=== PATIENT | female | born 1965 | race Caucasian/White ===

== ENCOUNTER 2016-09-10 07:37 | Day surgery (SDC) | payer BC ==
[2016-09-10] MEDS ORDERED: LACTATED RINGERS 1,000 ML IV ONE (08:54)
[2016-09-10] MEDS ORDERED: MIDAZOLAM 2 MG/2 ML VIAL IVP ONE (09:53)
[2016-09-10] MEDS ORDERED: fentaNYL 250 MCG/5 ML VIAL IVP ONE (09:53)
== END 2016-09-10 07:38 | disposition home or self-care (01) ==
PROC: 0DBK8ZX Excision of Ascending Colon, Via Natural or Artificial Opening Endoscopic, Diagnostic (ICD-10-PCS; principal; 2016-09-10 09:15)
DX: Z12.11 Encounter for screening for malignant neoplasm of colon (principal); D12.2 Benign neoplasm of ascending colon; Z80.0 Family history of malignant neoplasm of digestive organs; K57.30 Diverticulosis of large intestine without perforation or abscess without bleeding; K64.8 Other hemorrhoids
CPT/HCPCS: 45380; J3010; J7120

== ENCOUNTER 2017-04-06 08:00 | Outpatient (CLI) | payer BC | END 2017-04-06 08:01 | disposition home or self-care (01) | LOC: LAB.WCP 08:00 | PROVIDERS: ATTEND Family Medicine | DX: N39.0 Urinary tract infection, site not specified (principal) | CPT/HCPCS: 87086 ==

== ENCOUNTER 2017-08-18 08:00 | Outpatient (CLI) | payer BC ==
[2017-08-18 13:40] LABS: BASOPHILS % (AUTO) 1.1 %; EOSINOPHILS # (AUTO) 0.1 10^3/uL (0.0-0.7); EOSINOPHILS % (AUTO) 1.7 %; HCT - HEMATOCRIT 41.1 % (37.0-47.0); HGB - HEMOGLOBIN 14.2 g/dL (12.0-16.0); LYMPHOCYTES # (AUTO) 1.8 10^3/uL (1.5-3.5); LYMPHOCYTES % (AUTO) 43.3 %; MEAN CORPUSCULAR HEMOGLOBIN 30.7 pg (27.0-31.0); MEAN CORPUSCULAR HGB CONC 34.7 g/dL (32.0-36.0); MEAN CORPUSCULAR VOLUME 88.5 fL (81.0-99.0); MEAN PLATELET VOLUME 9.3 fL (7.9-10.8); MONOCYTES # (AUTO) 0.3 10^3/uL (0.0-1.0); MONOCYTES % (AUTO) 8.1 %; NEUTROPHILS # (AUTO) 1.9 10^3/uL (1.5-6.6); NEUTROPHILS % (AUTO) 45.8 %; RED BLOOD COUNT 4.64 10^6/uL (4.20-5.40); RED CELL DISTRIBUTION WIDTH 12.8 % (12.0-15.0); UNCORRECTED WHITE BLOOD COUNT 4.2 x10^3/uL; WHITE BLOOD COUNT 4.2 x10^3/uL (4.8-10.8)
[2017-08-18 13:55] LABS: ALBUMIN/GLOBULIN RATIO 1.4 (1.0-2.2); BILIRUBIN,TOTAL 0.8 mg/dL (0.2-1.0); BUN - BLOOD UREA NITROGEN 13 mg/dL (6-20); CALCIUM 9.2 mg/dL (8.5-10.3); CARBON DIOXIDE - CO2 27 mmol/L (21-32); CHLORIDE 100 mmol/L (101-111); CHOL/HDL RATIO 2.3 (<4.4); CHOLESTEROL 206 mg/dL; CREATININE 0.6 mg/dL (0.4-1.0); GFR - MDRD 106 (>89); GLUCOSE 87 mg/dL (70-100); HDL CHOLESTEROL 91 mg/dL; LDL/HDL RATIO 1.1 (<4.4); POTASSIUM 4.3 mmol/L (3.5-5.0); SODIUM 136 mmol/L (135-145); TRIGLYCERIDES 89 mg/dL; VLDL CHOLESTEROL 18 mg/dL
[2017-08-18 13:56] LABS: HEMOGLOBIN A1C 0.45 g/dL
== END 2017-08-18 08:01 ==
LOC: LAB.WCP 08:00
PROVIDERS: ATTEND Family Medicine
DX: Z00.00 Encounter for general adult medical examination without abnormal findings (principal)
CPT/HCPCS: 36415; 80053; 80061; 83036; 84443; 85025

== ENCOUNTER 2017-08-31 13:11 | Outpatient (CLI) | payer BC ==
--- NOTE | 2017-09-01 15:28 | Mammography Report ---
DATE OF SERVICE: 08/31/2017 DIGITAL SCREENING MAMMOGRAM: 08/31/2017 CLINICAL INDICATION: A 51-year-old nulliparous patient, for screening. COMPARISON: 06/2016, 10/2014. TECHNIQUE: Routine CC and MLO projections were obtained of the breasts. FINDINGS: Parenchymal tissue within both breasts is heterogeneously dense, which may lower the sensitivity of mammography; however, there are no dominant masses, suspicious microcalcifications, or secondary signs of malignancy. In comparison to the previous studies, there are no significant changes. ASSESSMENT: NO MAMMOGRAPHIC EVIDENCE OF MALIGNANCY. NO SIGNIFICANT INTERVAL CHANGES. RECOMMENDATION: Screening mammography is recommended annually. BIRADS category 1 - negative. STANDARD QUALIFYING STATEMENTS: 1. This examination was reviewed with the aid of Computed-Aided Detection (CAD). 2. A negative or benign imaging report should not delay biopsy if clinically suspicious findings are present. Consider surgical consultation if warranted. More than 5% of cancers are not identified by imaging. 3. Dense breasts may obscure an underlying neoplasm. TD: 09/01/2017 16:26
== END 2017-08-31 13:12 | disposition home or self-care (01) ==
LOC: DI.N 13:11
PROVIDERS: ATTEND Family Medicine
DX: Z12.31 Encounter for screening mammogram for malignant neoplasm of breast (principal)
CPT/HCPCS: 77067

== ENCOUNTER 2017-08-31 15:00 | Outpatient (CLI) | payer BC ==
[2017-08-31 19:10] LABS: ALBUMIN 4.2 g/dL (3.2-5.5); ALBUMIN/GLOBULIN RATIO 1.3 (1.0-2.2); BILIRUBIN,TOTAL 0.6 mg/dL (0.2-1.0); CALCIUM 9.2 mg/dL (8.5-10.3); CREATININE 0.7 mg/dL (0.4-1.0); TOTAL PROTEIN 7.4 g/dL (6.7-8.2)
== END 2017-08-31 15:01 | disposition home or self-care (01) ==
LOC: LAB.WCP 15:00
PROVIDERS: ATTEND Family Medicine
DX: B35.1 Tinea unguium (principal); Z79.899 Other long term (current) drug therapy
CPT/HCPCS: 36415; 80053

== ENCOUNTER 2017-10-04 08:03 | Outpatient (CLI) | payer BC ==
[2017-10-04 13:28] LABS: ALBUMIN 4.2 g/dL (3.2-5.5); ALBUMIN/GLOBULIN RATIO 1.5 (1.0-2.2); BILIRUBIN,TOTAL 0.8 mg/dL (0.2-1.0); CALCIUM 8.8 mg/dL (8.5-10.3); CREATININE 0.7 mg/dL (0.4-1.0)
== END 2017-10-04 08:04 | disposition home or self-care (01) ==
LOC: LAB.WCP 08:03
PROVIDERS: ATTEND Family Medicine
DX: B35.1 Tinea unguium (principal); Z79.899 Other long term (current) drug therapy
CPT/HCPCS: 36415; 80053

== ENCOUNTER 2017-10-15 16:32 | Outpatient (CLI) | payer BC | END 2017-10-15 16:33 | disposition home or self-care (01) | LOC: LAB.R 16:32 | PROVIDERS: ATTEND Family Medicine | DX: J34.89 Other specified disorders of nose and nasal sinuses (principal) | CPT/HCPCS: 87070; 87205 ==

== ENCOUNTER 2017-11-08 07:47 | Outpatient (CLI) | payer BC ==
[2017-11-08 13:45] LABS: ALBUMIN 4.2 g/dL (3.2-5.5); ALBUMIN/GLOBULIN RATIO 1.5 (1.0-2.2); BILIRUBIN,TOTAL 0.5 mg/dL (0.2-1.0); CALCIUM 8.9 mg/dL (8.5-10.3); CREATININE 0.8 mg/dL (0.4-1.0)
== END 2017-11-08 07:48 | disposition home or self-care (01) ==
LOC: LAB.WCP 07:47
PROVIDERS: ATTEND Family Medicine
DX: B35.1 Tinea unguium (principal); Z79.899 Other long term (current) drug therapy
CPT/HCPCS: 36415; 80053

== ENCOUNTER 2018-08-30 07:23 | Outpatient (CLI) | payer BC ==
[2018-08-30 12:33] LABS: ALBUMIN/GLOBULIN RATIO 1.6 (1.0-2.2); ALKALINE PHOSPHATASE 40 IU/L (42-121); ALT ALANINE AMINOTRANSFERASE 10 IU/L (10-60); AST ASPARTATE AMINOTRANSFERASE 20 IU/L (10-42); BILIRUBIN,TOTAL 0.8 mg/dL (0.2-1.0); BUN - BLOOD UREA NITROGEN 12 mg/dL (6-20); CALCIUM 8.7 mg/dL (8.5-10.3); CARBON DIOXIDE - CO2 27 mmol/L (21-32); CHLORIDE 102 mmol/L (101-111); CHOL/HDL RATIO 2.4 (<4.4); CHOLESTEROL 192 mg/dL; CREATININE 0.6 mg/dL (0.4-1.0); GFR - MDRD 105 (>89); GLUCOSE 96 mg/dL (70-100); HDL CHOLESTEROL 81 mg/dL; LDL CHOLESTEROL,CALCULATED 96 mg/dL; LDL/HDL RATIO 1.2 (<4.4); SODIUM 135 mmol/L (135-145); TOTAL PROTEIN 6.5 g/dL (6.7-8.2); VLDL CHOLESTEROL 15 mg/dL
[2018-08-30 12:42] LABS: BASOPHILS % (AUTO) 0.8 %; EOSINOPHILS # (AUTO) 0.1 10^3/uL (0.0-0.7); EOSINOPHILS % (AUTO) 1.6 %; HGB - HEMOGLOBIN 13.3 g/dL (12.0-16.0); LYMPHOCYTES # (AUTO) 1.1 10^3/uL (1.5-3.5); LYMPHOCYTES % (AUTO) 27.1 %; MEAN CORPUSCULAR HEMOGLOBIN 31.3 pg (27.0-31.0); MEAN CORPUSCULAR HGB CONC 34.2 g/dL (32.0-36.0); MEAN CORPUSCULAR VOLUME 91.5 fL (81.0-99.0); MEAN PLATELET VOLUME 9.8 fL (7.9-10.8); MONOCYTES # (AUTO) 0.4 10^3/uL (0.0-1.0); MONOCYTES % (AUTO) 9.8 %; NEUTROPHILS # (AUTO) 2.5 10^3/uL (1.5-6.6); NEUTROPHILS % (AUTO) 60.7 %; PLT - PLATELET COUNT 197 10^3/uL (130-450); RED BLOOD COUNT 4.23 10^6/uL (4.20-5.40); RED CELL DISTRIBUTION WIDTH 12.8 % (12.0-15.0); WHITE BLOOD COUNT 4.1 x10^3/uL (4.8-10.8)
[2018-08-30 12:44] LABS: HB2 TOTAL 13.8 g/dL; HEMOGLOBIN A1C 0.41 g/dL; HEMOGLOBIN A1C % 4.9 % (4.6-6.2)
== END 2018-08-30 23:59 | disposition home or self-care (01) ==
LOC: LAB.WCP 07:23
PROVIDERS: ATTEND Family Medicine
DX: Z00.00 Encounter for general adult medical examination without abnormal findings (principal)
CPT/HCPCS: 36415; 80053; 80061; 83036; 83721; 84443; 85025

== ENCOUNTER 2018-09-14 08:22 | Outpatient (CLI) | payer BC ==
--- NOTE | 2018-09-15 08:46 | Mammography Report ---
Reason: SCREENING MAMMO Procedure Date: 09/14/2018 Accession Number: [id number] / [id number] Procedure: MGN - Screening Mammo Dig Bilat CPT Code: FULL RESULT: EXAM: Screening Mammo Dig Bilat DATE: 09/14/2018 8:38 AM CLINICAL HISTORY: Screening encounter. History of early menses and nulliparity. TECHNIQUE: Bilateral CC and MLO views were obtained. COMPARISON: 08/31/2017 through 11/20/2014 FINDINGS: The breasts demonstrate scattered fibroglandular densities bilaterally. No suspicious masses, clustered microcalcifications, or regions of architectural distortion are identified. IMPRESSION: Negative examination RECOMMENDATION: Routine annual screening unless otherwise clinically indicated. BIRADS CATEGORY 1: Negative STANDARD QUALIFYING STATEMENTS: 1. This examination was reviewed with the aid of Computer-Aided Detection (CAD). 2. A negative or benign imaging report should not preclude biopsy if clinically suspicious findings are present. 3. Dense breasts may obscure an underlying neoplasm. 4. This examination was reviewed without the aid of 3D breast imaging (tomosynthesis).
== END 2018-09-14 08:23 | disposition home or self-care (01) ==
LOC: DI.N 08:22
DX: Z12.31 Encounter for screening mammogram for malignant neoplasm of breast (principal)
CPT/HCPCS: 77067

== ENCOUNTER 2022-07-06 06:28 | Day surgery (SDC) | payer BC ==
[2022-07-06] MEDS ORDERED: CEFAZOLIN 2G/50ML 0.9% NS 2 GM/50 ML BAG IV ONE (06:34)
[2022-07-06] MEDS ORDERED: LACTATED RINGERS 1,000 ML IV ONE ×3 (06:36→15:30)
[2022-07-06] MEDS ORDERED: EPINEPHrine 1 MG/ML AMP ONE (06:50)
[2022-07-06] MEDS ORDERED: MINERAL OIL/PETROLAT OPHTH OINT ONE (06:50)
[2022-07-06] MEDS ORDERED: CHLORHEXIDINE GLUCONATE 15 ML UDC PO ONE (06:51)
[2022-07-06] MEDS ORDERED: BACITRACIN ZINC OINT 1 PACKET TOP ONE (06:51)
[2022-07-06] MEDS ORDERED: OXYMETAZOLINE HCL 100 SPRAYS BOTTLE ONE ×2 (06:51→07:58)
[2022-07-06] MEDS ORDERED: LIDOCAINE MPF 2%-EPI 1:200000 20 ML VIAL ONE (06:59)
[2022-07-06] MEDS ORDERED: MIDAZOLAM 2 MG/2 ML VIAL ONE (07:25)
[2022-07-06] MEDS ORDERED: fentaNYL 100 MCG/2 ML VIAL ONE (07:26)
--- NOTE | 2022-07-06 07:43 | ANESTHESIA ---
Pre-Anesthesia VS, & Labs - Diagnosis arthritis, R TMJ - Procedure R TMJ arthroplasty Vital Signs: Temp Pulse Resp BP Pulse Ox O2 Flow Rate 36.4 C L 72 9 L 112/76 99 07/06/22 06:50 07/06/22 06:50 07/06/22 06:50 07/06/22 06:50 07/06/22 06:50 Height: 5 ft 4 in Weight (kg): 73.7 kg Body Mass Index: 27.8 BMI Classification: Overweight - NPO >8 hours - Is Patient ?: No Home Medications and Allergies Home Medications: Ambulatory Orders Ibuprofen [Motrin] 600 mg PO Q6H PRN 06/26/22 Multivitamin [Multiple Vitamins] 1 each PO DAILY 06/17/17 Ibuprofen [Motrin] 600 mg PO Q6H PRN 06/26/22 Allergies/Adverse Reactions: Allergies Allergy/AdvReac Type Severity Reaction Status Date / Time amoxicillin Allergy Hives Verified 06/26/22 10:31 Penicillins Allergy Hives Verified 06/26/22 10:31 Anes History & Medical History - Anesthetic History Anesthesia Complications: reports: No previous complications Family history of Anesthesia Complications: Denies Family history of Malignant Hyperthermia: Denies (hx of PFO repair as a child) - Medical History Cardiovascular: reports: Other Pulmonary: reports: None Gastrointestinal: reports: None Urinary: reports: None Musculoskeletal: reports: None Endocrine/Autoimmune: reports: None Skin: reports: None Smoking Status: Never smoker - Surgical History General: reports: Colonoscopy Cardiothoracic: reports: Other Exam General: Alert, Oriented x3, Cooperative Dental: WNL Mouth Openin Fingerbreadth Neck Mobility: Normal Mallampati classification: II Thyromental Distance: 4-6 cm Respiratory: Lungs clear Cardiovascular: Regular rate Plan Anesthesia Type: General Consent for Procedure(s) Verified and Reviewed: Yes Code Status: Attempt Resuscitation ASA classification: 2-Mild systemic disease Is this case an emergency?: No
[2022-07-06] MEDS ORDERED: ePHEDrine 50 MG/ML VIAL IVP PRN (07:47)
[2022-07-06] MEDS ORDERED: METOCLOPRAMIDE 10 MG/2 ML VIAL IVP PRN (07:47)
[2022-07-06] MEDS ORDERED: NALOXONE 0.4 MG/ML VIAL IVP PRN (07:47)
[2022-07-06] MEDS ORDERED: MORPHINE 2 MG/ML CARPUJECT IVP PRN (07:47)
[2022-07-06] MEDS ORDERED: ONDANSETRON 4 MG/2 ML VIAL IVP PRN ×2 (07:47→15:36)
[2022-07-06] MEDS ORDERED: HYDROmorphone 0.5 MG/0.5 ML SYRINGE IVP PRN (07:47)
[2022-07-06] MEDS ORDERED: ATROPINE ABBOJECT 1 MG/10 ML SYRINGE IVP PRN (07:47)
[2022-07-06] MEDS ORDERED: fentaNYL 100 MCG/2 ML VIAL IVP PRN (07:47)
[2022-07-06] MEDS ORDERED: LACTATED RINGERS 1,000 ML IV SCH (08:00)
[2022-07-06] MEDS ORDERED: SCOPOLAMINE PATCH TOP ONE (08:05)
[2022-07-06] MEDS ORDERED: ACETAMINOPHEN 1,000 MG/100 ML 1,000 MG/100 ML BAG IV ONE (08:54)
[2022-07-06] MEDS ORDERED: HYDROmorphone 1 MG/ML CARPUJECT ONE (08:54)
[2022-07-06] MEDS ORDERED: OXYMETAZOLINE HCL 100 SPRAYS BOTTLE NAS ONE (09:57)
[2022-07-06] MEDS ORDERED: BACITRACIN ZINC OINT 14 GM TOP ONE (09:59)
[2022-07-06] MEDS ORDERED: EPINEPHrine 1 MG/ML AMP IJ ONE (10:00)
[2022-07-06] MEDS ORDERED: SODIUM CHLORIDE 0.9% 100 ML BAG IV ONE (10:01)
[2022-07-06] MEDS ORDERED: LIDOCAINE 2%-EPI 1:100000 20 ML MDV SUBQ ONE ×2 (10:07)
[2022-07-06] MEDS ORDERED: CHLORHEXIDINE GLUCONATE 15 ML UDC PO STA (10:16)
[2022-07-06] MEDS ORDERED: MINERAL OIL/PETROLAT OPHTH OINT EACHEYE STA (10:16)
[2022-07-06] MEDS ORDERED: SUCCINYLCHOLINE 200 MG/10 ML VIAL ONE (11:35)
[2022-07-06] MEDS ORDERED: ceFAZolin 1 GM VIAL ONE (12:07)
[2022-07-06] MEDS ORDERED: VANCOMYCIN 1 GM VIAL ONE (13:20)
[2022-07-06] MEDS ORDERED: VANCOMYCIN 1 GM VIAL MC ONE (13:23)
[2022-07-06] MEDS ORDERED: DEXAMETHASONE 4 MG/ML VIAL ONE (14:45)
[2022-07-06] MEDS ORDERED: ONDANSETRON 4 MG/2 ML VIAL ONE (14:45)
[2022-07-06] MEDS ORDERED: PROPOFOL 200 MG/20 ML VIAL IVP ONE (14:55)
[2022-07-06] MEDS ORDERED: ROCURONIUM 50 MG/5 ML VIAL ONE (14:55)
[2022-07-06] MEDS ORDERED: diphenhydrAMINE INJ 50 MG/ML VIAL ONE (14:56)
--- NOTE | 2022-07-06 14:57 | OPERATIVE REPORT ---
Operative Report - General Procedure Date: 07/06/22 Planned Procedure: 1. R temporomandibular joint total joint arthroplasty 2. Intraoperative IMF 3. 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 TJA of the R TMJ w/ prosthetic joint replacement 2. Intraoperative IMF 3. Placement of surgical stent Post Op Diagnosis: Osteoarthritis of the right TMJ - Procedure Note Primary Surgeon: Jairo Miguel DDS Anesthesia Provider: Maya Spencer CRNA Anesthesia Technique: General ET tube (Via the R naris) IV Fluids (mL): 1,800 Estimated Blood Loss (mL): 150 Urine Output (mL): 250 Indications: 56 yo F w/ a group home history of pain of the right TMJ. Worsening over the last year has caused decreased ability to chew food and weight loss. Clinical and radiographic exam was consistent with R TMJ osteoarthritis. It was decided that R TMJ TJA with prosthetic replacement was indicated. The RBAs of this procedure were discussed with this patient including pain, swelling, bleeding, scarring, poor cosmesis, nerve damage with paralysis and/or numbness of the mouth and face, hardware failure, malocclusion, continued TMJ pain, trismus, and need for further surgery. Adequate time was given to answer all questions and informed consent was obtained. Findings: The patient was brought to the main operating room and placed in a supine position on the operating table. General anesthesia was induced by the anesthesia team and the airway was secured with a nasal endotracheal tube. The tube was secured to the septum with 2-0 silk suture. All pressure points were padded and checked. The eyes were protected with Lacri-Lube and Tegaderms. The hair in front of and over the right ear was shaved Attention was directed intraorally. A throat pack was placed. 4 IMF screws were placed on the maxilla and 4 IMF screws were placed on the mandible. The surgical stent was tried between the teeth and found to effectively put the position the patient in a good condylar relationship. A Cruz catheter was placed. The patient was prepped and draped in the standard sterile fashion for placement of a temporomandibular joint total joint arthroplasty with prosthetic replacement. No local anesthesia was given because instead of this it was necessary to give 1-50,000 epinephrine because of the need to perform nerve stimulation. Attention was directed to the right retromandibular region. An incision starting 1 cm inferior to the lobule of the ear and extending for 2 to 2.5 cm inferiorly was performed through the skin with a 15 blade. Blunt dissection through the subcutaneous layers was performed using nerve stimulation to identify the marginal mandibular branch and the buccal branch of the facial nerve. The marginal mandibular branch was reflected inferiorly and the buccal branch was an flap reflected superiorly. Throughout the entirety of the case the nerves were protected carefully with retractors and gentle retraction. A nerve stimulator was used for their identification. After finishing blunt dissection through the parotid the pterygomasseteric sling was encountered. The sling was incised at the inferior and posterior border of the mandible with electrocautery. A #9 periosteal elevator was used to dissect in the subperiosteal layer until the lateral aspect of the mandible had been exposed to the throughout the angle and up to the condylar neck. Attention was directed then to the right preauricular area an incision was made with a #15 blade through the skin. Blunt dissection was then performed through the subcutaneous tissues using nerve stimulation to check for the temporal branch of the facial nerve. The temporal branch was never identified throughout the surgery. The temporalis muscle and its fascia were identified. The fascia was incised. In a subtemporalis fascia plane dissection was performed inferiorly to the zygomatic arch. At this point the investing fascia and the periosteum over the zygomatic arch were incised vertically. This fascia was retracted anteriorly. Dissection at the inferior aspect of the wound was performed by staying close to the external auditory canal and avoiding the is superficial temporal artery. The temporomandibular joint capsule was encountered. A vertical incision and an anterior incision were made through the capsule. The anterior incision was a an incision that coursed from the original vertical incision anteriorly in order to allow greater access to the condyle and the fossa. The condyle was easily identified. Condylar neck retractors were placed around the condyle and a handpiece was used to remove the top centimeter of condylar head. The last little bit of the osteotomy was left incomplete after the portion with a handpiece was completed and this portion was completed with the T-bar osteotome. Once the osteotomy was completed then the lateral pterygoid muscle was dissected off of the condylar head carefully with a combination of a #1 periosteal elevator and a electrocautery. Using a bone clamp on the angle of the mandible the mandible was pushed superiorly. Because of the lack of clearance that was anticipated between the mandibular notch and the eminence of the prostatic fossa, it was decided to reduce the condylar notch with a football bur. This was performed with copious irrigation and with retractors to protect the soft tissues. After this was completed the condylar neck retractors were positioned so that the condylar neck could be removed more inferiorly and the mandible was positioned superiorly by using the bone clamp on the angle of the mandible. The osteotomy was completed 80% [address] the way with a handpiece in the last 20% was completed with a T-bar osteotome. The muscle was dissected off the anterior portion of the condylar neck and the condylar neck was discarded. A rasp on a reciprocating handpiece was then used to smooth the edges of all remaining areas of osteotomy on the distal segment of the mandible. A football bur and a rasp were then used to reduce the existing fossa. At this point we were able to identify the TMJ disc. It was very anterior and medial and it was teased out carefully making sure not to stimulate any bleeding. The disc was crumpled and perforated and really had no recognizable anatomy. It was removed carefully and bleeding was controlled with electrocautery. The condylar fossa was then curetted to make sure there is no remaining scar tissue. The trial condylar fossa was placed and the position of the mandible in relation to the fossa was verified by using a urethral sound. Attention was then directed intraorally the patient was placed in intermaxillary fixation with 4 24-gauge wires. Scrub was broken and the patient was redraped in the area of the mouth and face and attention was directed back to the right preauricular incision. A small right TMJ fossa implant was secured to the zygomatic arch with 2 bone screws. Attention was then directed to the right retromandibular incision. A trial condyle was placed and removed and it was decided to place a 50 mm regular right condyle. The condyle was opened and the condylar component was placed on the right mandible and into the fossa. It was held in place with 2 bone screws placed under copious irrigation and with retractors in place to protect the soft tissues. Attention was directed back into the mouth. Intermaxillary fixation was removed. The stent was removed. Occlusion was checked. Her occlusion looked very good with equally strong occlusion on the right and left. As existed preoperatively she still had the anterior open bite. Broke scrub again and replaced drapes over the mouth. Rescrubbed and attention directed to the right retromandibular incision. 3 additional screws were placed to secure the condylar component. Attention was directed to the preauricular incision 2 additional screws were placed to secure the fossa component. Both components of the hardware was stable. The entire surgical area was then irrigated copiously with 2 g of vancomycin and sterile saline. Good hemostasis was appreciated. The deep layers were closed with 4-0 Vicryl suture. The skin was closed with 5-0 Prolene suture. The face was cleansed the drapes were removed the suture was removed from the nasal septum the wounds were dressed with bacitracin. The occlusion was again checked and found to be anatomic. Care of the patient was returned to the anesthesia team. She was extubated and emerged from anesthesia uneventfully. The Cruz catheter was removed prior to her emergence from anesthesia. She was taken to the PACU in stable condition. Complications: None
--- NOTE | 2022-07-06 15:31 | ANESTHESIA POST OP EVALUATION ---
Anesthesia Post Eval - Post Anesthesia Eval Vitals: Last Vital Signs Temp 37.1 C 07/06/22 15:02 Pulse 74 07/06/22 15:27 Resp 19 07/06/22 15:27 BP 124/71 07/06/22 15:27 Pulse Ox 96 07/06/22 15:27 O2 Flow Rate CV Function Including HR & BP: Stable Pain Control: Satisfactory Nausea & Vomiting: Negative Mental Status: Baseline Respiratory Status: Airway Patent Hydration Status: Satisfactory Anesthesia Complications: None
[2022-07-06] MEDS ORDERED: HYDROmorphone 0.5 MG/0.5 ML SYRINGE ONE (15:35)
[2022-07-06] MEDS ORDERED: oxyCODONE 10 MG/0.5 ML SYRINGE PO PRN (15:36)
[2022-07-06] MEDS ORDERED: KETOROLAC 30 MG/ML VIAL IVP PRN (15:36)
[2022-07-06] MEDS ORDERED: KETOROLAC 15 MG/ML VIAL ONE (15:45)
[2022-07-06] MEDS: IBUPROFEN 800 MG TABLET PO SCH ×2 (17:29→21:48)
[2022-07-06] MEDS: CLINDAMYCIN 150 MG CAPSULE PO SCH (19:02)
[2022-07-06] MEDS ORDERED: CHLORHEXIDINE GLUCONATE 15 ML UDC PO SCH (21:00)
[2022-07-06] MEDS: MORPHINE 2 MG/ML CARPUJECT IVP PRN (21:48)
[2022-07-07] MEDS: CLINDAMYCIN 150 MG CAPSULE PO SCH
[2022-07-07 04:16] VITALS: BP 105/62
[2022-07-07] MEDS: IBUPROFEN 800 MG TABLET PO SCH (04:21)
[2022-07-07] MEDS: MORPHINE 2 MG/ML CARPUJECT IVP PRN ×2 (04:21)
== END 2022-07-07 04:57 | disposition home or self-care (01) ==
LOC: SDS 06:28 → MS2 15:14 → SDS 07-07 04:57
PROVIDERS: ATTEND Dentist Oral and Maxillofacial Surgery
DX: M26.641 Arthritis of right temporomandibular joint (principal)
CPT/HCPCS: 21243; A9270; J0131; J0330; J0690; J1170; J1200; J3370; J3490; J7120